=== PATIENT | male | born 1940 | race Caucasian/White ===

== ENCOUNTER 2018-08-27 16:02 | Inpatient (IN) | payer MEDICARE, BC ==
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
[2018-08-27 16:43] LABS: Hematocrit 37 % (42-52); Hemoglobin 12.3 g/dl (14.0-18.0); Mean Corpuscular HGB Conc 33 g/dl (31-36); Mean Corpuscular Hemoglobin 31 pg (27-31); Mean Corpuscular Volume 93 fL (80-94); Mean Platelet Volume 7.1 fL (7.4-10.4); Platelet Count 129 10^3/ul (150-450); Red Blood Count 3.95 10^6/ul (4.00-5.40); Red Cell Distribution Width 16 % (10.5-15); White Blood Count 5.1 10^3/ul (3.5-10.8)
[2018-08-27 17:42] LABS: Monocytes % 8 % (0-7)
[2018-08-27] MEDS ORDERED: NS 0.9% 1000 ML*IV.FLUID IV ONE (20:32)
[2018-08-27] MEDS ORDERED: cefTRIAXone(*) 1 GM in NS 0.9% 50 ML* 50 ML IVPB ONE (21:00)
[2018-08-27 21:08] LABS: ABS Basophils 0 10^3/ul (0-0.2); ABS Eosinophils 0 10^3/ul (0-0.6); ABS Lymphocytes 0.4 10^3/ul (1.0-4.8); ABS Monocytes 0.6 10^3/ul (0-0.8); ABS Neutrophils 4.3 10^3/ul (1.5-7.7); ABS Nucleated RBC 0 10^3/ul; Eosinophil % 0.1 % (0-6); Hematocrit 37 % (42-52); Hemoglobin 12.2 g/dl (14.0-18.0); Lymphocyte % 8.3 % (25-47); Mean Corpuscular HGB Conc 34 g/dl (31-36); Mean Corpuscular Hemoglobin 31 pg (27-31); Mean Corpuscular Volume 93 fL (80-94); Mean Platelet Volume 7.2 fL (7.4-10.4); Nucleated Red Blood Cells % 0.4; Platelet Count 128 10^3/ul (150-450); Red Blood Count 3.92 10^6/ul (4.00-5.40); Red Cell Distribution Width 16 % (10.5-15); White Blood Count 5.4 10^3/ul (3.5-10.8)
[2018-08-27] MEDS ORDERED: Acetaminophen TAB* 325 MG PO PRN (21:41)
[2018-08-27] MEDS ORDERED: Senna TAB PO PRN (21:41)
[2018-08-27] MEDS ORDERED: Al Hydrox/Mg Hydrox/Simet LIQ* 30 ML UDC PO PRN (21:41)
[2018-08-27] MEDS ORDERED: Docusate CAP* 100 MG PO PRN (21:41)
[2018-08-27] MEDS ORDERED: Ondansetron INJ* 2 MG/ML VIAL IV PRN (21:41)
[2018-08-27 22:20] LABS: Urine Appearance Clear; Urine Blood 1+ (Negative); Urine Color Yellow; Urine Ketones 1+ (Negative); Urine Protein Negative (Negative); Urine Urobilinogen Negative (Negative)
[2018-08-27] MEDS ORDERED: Magnesium Sulfate 2 GM IV* 2 GM/50 ML BAG IVPB ONE (23:01)
[2018-08-27] MEDS: Heparin VIAL(*) 5000 UNITS/ML VIAL (FIVE THOUSAND) SUBCUT SCH (23:46)
[2018-08-27] MEDS: NS 0.9% 1000 ML* 1,000 ML IV SCH (23:46)
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
[2018-08-28 05:33] LABS: Hematocrit 35 % (42-52); Mean Corpuscular HGB Conc 34 g/dl (31-36); Mean Corpuscular Hemoglobin 32 pg (27-31); Mean Corpuscular Volume 93 fL (80-94); Mean Platelet Volume 7.3 fL (7.4-10.4); Platelet Count 109 10^3/ul (150-450); Red Blood Count 3.78 10^6/ul (4.00-5.40); Red Cell Distribution Width 16 % (10.5-15); White Blood Count 5.1 10^3/ul (3.5-10.8)
[2018-08-28 05:56] LABS: EGFR Non-African American 76.3 (>60)
[2018-08-28] MEDS: Heparin VIAL(*) 5000 UNITS/ML VIAL (FIVE THOUSAND) SUBCUT SCH ×3 (06:08→20:37)
[2018-08-28 07:21] LABS: ABS Basophils 0 10^3/ul (0-0.2); ABS Eosinophils 0 10^3/ul (0-0.6); ABS Lymphocytes 0.5 10^3/ul (1.0-4.8); ABS Monocytes 0.6 10^3/ul (0-0.8); ABS Neutrophils 3.9 10^3/ul (1.5-7.7)
[2018-08-28 07:25] LABS: Monocytes % 9 % (0-7)
[2018-08-28] MEDS: NS 0.9% 1000 ML* 1,000 ML IV SCH ×2 (09:54→20:11)
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
[2018-08-28] MEDS: Aspirin EC TAB* 81 MG TAB.EC PO SCH (20:06)
[2018-08-28] MEDS: Tamsulosin CAP* 0.4 MG PO SCH (20:06)
[2018-08-28] MEDS: Primidone TAB(*) 50 MG PO SCH (20:38)
[2018-08-28] MEDS ORDERED: cefTRIAXone(*) 1 GM in NS 0.9% 50 ML* 50 ML IVPB SCH (21:00)
--- NOTE | 2018-08-29 00:30 | PN ---
Progress Note - Progress Note Date of Service: 08/29/18 Note: HR in 40's while sleeping, goes up when awakes. BP: NL. Not on any antihypertensives.
[2018-08-29] MEDS: Heparin VIAL(*) 5000 UNITS/ML VIAL (FIVE THOUSAND) SUBCUT SCH ×3 (05:17→21:36)
[2018-08-29 05:30] LABS: Hematocrit 32 % (42-52); Hemoglobin 10.8 g/dl (14.0-18.0); Mean Corpuscular HGB Conc 33 g/dl (31-36); Mean Corpuscular Hemoglobin 31 pg (27-31); Mean Corpuscular Volume 94 fL (80-94); Mean Platelet Volume 7.7 fL (7.4-10.4); Platelet Count 97 10^3/ul (150-450); Red Blood Count 3.44 10^6/ul (4.00-5.40); Red Cell Distribution Width 16 % (10.5-15); White Blood Count 3.3 10^3/ul (3.5-10.8)
[2018-08-29] MEDS: NS 0.9% 1000 ML* 1,000 ML IV SCH (05:32)
[2018-08-29 05:48] LABS: ABS Basophils 0 10^3/ul (0-0.2); ABS Eosinophils 0.1 10^3/ul (0-0.6); ABS Lymphocytes 0.7 10^3/ul (1.0-4.8); ABS Monocytes 0.7 10^3/ul (0-0.8); ABS Neutrophils 1.9 10^3/ul (1.5-7.7); ABS Nucleated RBC 0 10^3/ul
[2018-08-29 05:53] LABS: Monocytes % 15 % (0-7)
[2018-08-29 05:54] LABS: ABS Neutrophils 1.9 10^3/ul (1.5-7.7)
[2018-08-29 05:55] LABS: ABS Basophils 0 10^3/ul (0-0.2)
[2018-08-29] MEDS: DULoxetine DR CAP* 60 MG CAP.DR PO SCH (08:04)
[2018-08-29] MEDS: Aspirin EC TAB* 81 MG TAB.EC PO SCH (08:05)
[2018-08-29] MEDS ORDERED: Iohexol 300* (CONTRAST) 10 ML SDV IV ONE (13:14)
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
[2018-08-29] MEDS: Thiamine IV* 250 MG in NS 0.9% 100 ML* 100 ML IV SCH (17:31)
[2018-08-29] MEDS: Atorvastatin* 20 MG TAB PO SCH (17:31)
[2018-08-29] MEDS: Tamsulosin CAP* 0.4 MG PO SCH (21:36)
[2018-08-29] MEDS: Primidone TAB(*) 50 MG PO SCH (21:36)
[2018-08-30] MEDS: Thiamine IV* 250 MG in NS 0.9% 100 ML* 100 ML IV SCH ×4 (01:10→23:35)
[2018-08-30] MEDS: Heparin VIAL(*) 5000 UNITS/ML VIAL (FIVE THOUSAND) SUBCUT SCH ×3 (05:34→20:28)
[2018-08-30] MEDS: Aspirin EC TAB* 81 MG TAB.EC PO SCH (08:26)
[2018-08-30] MEDS: DULoxetine DR CAP* 60 MG CAP.DR PO SCH (08:26)
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
[2018-08-30] MEDS: Atorvastatin* 20 MG TAB PO SCH (17:46)
[2018-08-30] MEDS: Tamsulosin CAP* 0.4 MG PO SCH (20:28)
[2018-08-30] MEDS: Primidone TAB(*) 50 MG PO SCH (20:28)
--- NOTE | 2018-08-30 21:12 | PN ---
Hospitalist Progress Note Date of Service: 08/30/18 HOSPITALIST ADDENDUM I found patient wandering on the hallway and he didn't know how to return to his room. He recognized med, but didn't remember much of our conversation this morning. He was aware he was having memory issues and could not tell me how he had gotten to the 2nd floor. Observing the patient at this time, I believe he may not be safe to be by himself at home. As he does not have any family, we need to figure a safer discharge plan.
[2018-08-31] MEDS: Heparin VIAL(*) 5000 UNITS/ML VIAL (FIVE THOUSAND) SUBCUT SCH ×3 (05:25→21:45)
[2018-08-31] MEDS: DULoxetine DR CAP* 60 MG CAP.DR PO SCH (08:41)
[2018-08-31] MEDS: Aspirin EC TAB* 81 MG TAB.EC PO SCH (08:41)
[2018-08-31] MEDS: Thiamine IV* 250 MG in NS 0.9% 100 ML* 100 ML IV SCH (08:41)
[2018-08-31] MEDS: Atorvastatin* 20 MG TAB PO SCH (16:07)
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
[2018-08-31] MEDS: Primidone TAB(*) 50 MG PO SCH (21:45)
[2018-08-31] MEDS: Tamsulosin CAP* 0.4 MG PO SCH (21:45)
[2018-09-01] MEDS: Heparin VIAL(*) 5000 UNITS/ML VIAL (FIVE THOUSAND) SUBCUT SCH ×3 (04:38→21:15)
[2018-09-01] MEDS: DULoxetine DR CAP* 60 MG CAP.DR PO SCH (10:06)
[2018-09-01] MEDS: Aspirin EC TAB* 81 MG TAB.EC PO SCH (10:06)
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
[2018-09-01] MEDS: Thiamine TAB* 100 MG TAB PO SCH (12:27)
[2018-09-01] MEDS: Atorvastatin* 20 MG TAB PO SCH (18:19)
[2018-09-01] MEDS: Primidone TAB(*) 50 MG PO SCH (21:06)
[2018-09-01] MEDS: Tamsulosin CAP* 0.4 MG PO SCH (21:06)
[2018-09-02] MEDS: Heparin VIAL(*) 5000 UNITS/ML VIAL (FIVE THOUSAND) SUBCUT SCH ×3 (05:23→21:06)
[2018-09-02 05:49] LABS: ABS Basophils 0 10^3/ul (0-0.2); ABS Eosinophils 0.1 10^3/ul (0-0.6); ABS Lymphocytes 1.3 10^3/ul (1.0-4.8); ABS Monocytes 0.4 10^3/ul (0-0.8); ABS Neutrophils 2.8 10^3/ul (1.5-7.7); ABS Nucleated RBC 0 10^3/ul; Eosinophil % 2.1 % (0-6); Hematocrit 33 % (42-52); Hemoglobin 11.1 g/dl (14.0-18.0); Lymphocyte % 27.4 % (25-47); Mean Corpuscular HGB Conc 34 g/dl (31-36); Mean Corpuscular Hemoglobin 31 pg (27-31); Mean Corpuscular Volume 93 fL (80-94); Nucleated Red Blood Cells % 0.1; Platelet Count 185 10^3/ul (150-450); Red Blood Count 3.54 10^6/ul (4.00-5.40); Red Cell Distribution Width 16 % (10.5-15); White Blood Count 4.6 10^3/ul (3.5-10.8)
[2018-09-02] MEDS: Thiamine TAB* 100 MG TAB PO SCH (08:52)
[2018-09-02] MEDS: Folic Acid TAB* 1 MG PO SCH (08:52)
[2018-09-02] MEDS: Multivitamins/Minerals TAB PO SCH (08:52)
[2018-09-02] MEDS: Aspirin EC TAB* 81 MG TAB.EC PO SCH (08:52)
[2018-09-02] MEDS: DULoxetine DR CAP* 60 MG CAP.DR PO SCH (08:52)
[2018-09-02] MEDS: Atorvastatin* 20 MG TAB PO SCH (18:56)
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
[2018-09-02] MEDS: Tamsulosin CAP* 0.4 MG PO SCH (21:08)
[2018-09-02] MEDS: Primidone TAB(*) 50 MG PO SCH (21:08)
[2018-09-03 00:25] VITALS: BP 134/60
[2018-09-03] MEDS: Heparin VIAL(*) 5000 UNITS/ML VIAL (FIVE THOUSAND) SUBCUT SCH (05:41)
[2018-09-03 06:05] LABS: EGFR Non-African American 97.2 (>60)
[2018-09-03] MEDS: DULoxetine DR CAP* 60 MG CAP.DR PO SCH (09:37)
[2018-09-03] MEDS: Aspirin EC TAB* 81 MG TAB.EC PO SCH (09:37)
[2018-09-03] MEDS: Multivitamins/Minerals TAB PO SCH (09:37)
[2018-09-03] MEDS: Thiamine TAB* 100 MG TAB PO SCH (09:37)
[2018-09-03] MEDS: Folic Acid TAB* 1 MG PO SCH (09:37)
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
== END 2018-09-03 13:45 | DRG 93 ==
LOC: ED 16:02 → MEDTELE 21:41 → OBSVTOIN 08-29 10:15 → MEDTELE 08-30 20:53
PROVIDERS: ADMIT Pediatrics; ATTEND Internal Medicine
DX: G92 Toxic encephalopathy (principal); F32.9 Major depressive disorder, single episode, unspecified; R50.9 Fever, unspecified; I47.9 Paroxysmal tachycardia, unspecified; M19.90 Unspecified osteoarthritis, unspecified site; G25.0 Essential tremor; D50.9 Iron deficiency anemia, unspecified; I08.1 Rheumatic disorders of both mitral and tricuspid valves; I25.10 Atherosclerotic heart disease of native coronary artery without angina pectoris; R79.89 Other specified abnormal findings of blood chemistry; E87.8 Other disorders of electrolyte and fluid balance, not elsewhere classified; E53.8 Deficiency of other specified B group vitamins; N40.0 Benign prostatic hyperplasia without lower urinary tract symptoms; V43.52XA Car driver injured in collision with other type car in traffic accident, initial encounter; Z79.82 Long term (current) use of aspirin; Z85.038 Personal history of other malignant neoplasm of large intestine; Z93.3 Colostomy status; Z87.891 Personal history of nicotine dependence; Z72.89 Other problems related to lifestyle; Z86.73 Personal history of transient ischemic attack (TIA), and cerebral infarction without residual deficits; Y92.410 Unspecified street and highway as the place of occurrence of the external cause
CPT/HCPCS: 36415; 70450; 70551; 71046; 71260; 74177; 80048; 80053; 80061; 80320; 81003; 81015; 82140; 82607; 83605; 83735; 84439; 84443; 85025; 85060; 86617; 86618; 87040; 93005; 99283; A9270-GY; G0480; G8978-GP-CH; G8978-GP-CJ; G8979-GP-CH; G8980-GP-CH; G8987-GO-CI; G8988-GO-CI; G8989-GO-CI; J0696; J1644; J3411; J3475; Q9967

== ENCOUNTER 2021-08-31 21:46 | Inpatient (IN) ==
[2021-08-31 22:21] LABS: ABS Lymphocytes 0.5 10^3/ul (1.0-4.8); ABS Monocytes 1.5 10^3/ul (0-0.8); ABS Neutrophils 16.2 10^3/ul (1.5-7.7); Hematocrit 36 % (42-52); Hemoglobin 12.2 g/dL (14.0-18.0); Lymphocyte % 2.6 %; Mean Corpuscular HGB Conc 34 g/dL (31-36); Mean Corpuscular Hemoglobin 34 pg (27-31); Mean Corpuscular Volume 101 fL (80-94); Platelet Count 276 10^3/uL (150-450); Red Blood Count 3.54 10^6 /uL (4.18-5.48); Red Cell Distribution Width 13 % (10-15); White Blood Count 18.2 10^3/uL (3.5-10.8)
[2021-08-31 22:37] LABS: Albumin 3.9 g/dL (3.2-5.2); Albumin/Globulin Ratio 1.3 (1-3); Calcium 9.5 mg/dL (8.6-10.3); Globulin 3.1 g/dL (2-4); Potassium 4.4 mmol/L (3.5-5.0); Total Bilirubin 0.9 mg/dL (0.2-1.0)
[2021-08-31] MEDS ORDERED: Morphine 4 MG/ML VIAL (1 ml) IV ONE (22:39)
[2021-08-31] MEDS ORDERED: Lactated Ringers 1000 ml BAG 1,000 ML IV ONE (22:39)
[2021-09-01] MEDS ORDERED: Ondansetron 4 mg VIAL 2 MG/ML 2 ml VIAL IV PRN (01:11)
[2021-09-01] MEDS ORDERED: NS 0.9% 1000 ml BAG 1,000 ML IV SCH (01:15)
[2021-09-01 03:51] LABS: Rapid COVID-19 Molecular Undetected (Undetected)
[2021-09-01 09:05] LABS: ABS Lymphocytes 0.7 10^3/ul (1.0-4.8); ABS Monocytes 1.4 10^3/ul (0-0.8); ABS Neutrophils 12.4 10^3/ul (1.5-7.7); Hematocrit 31 % (42-52); Hemoglobin 10.8 g/dL (14.0-18.0); Lymphocyte % 5.1 %; Mean Corpuscular HGB Conc 35 g/dL (31-36); Mean Corpuscular Hemoglobin 36 pg (27-31); Mean Corpuscular Volume 102 fL (80-94); Mean Platelet Volume 7.1 fL (7.4-10.4); Platelet Count 222 10^3/uL (150-450); Red Blood Count 3.05 10^6 /uL (4.18-5.48); Red Cell Distribution Width 13 % (10-15); White Blood Count 14.5 10^3/uL (3.5-10.8)
[2021-09-01 09:14] LABS: ALT 25 U/L (7-52); AST 95 U/L (13-39); Albumin 3.4 g/dL (3.2-5.2); Albumin/Globulin Ratio 1.1 (1-3); Alkaline Phosphatase 46 U/L (35-149); Anion Gap 5 mmol/L (2-11); Blood Urea Nitrogen 30 mg/dL (6-24); CO2 Carbon Dioxide 30 mmol/L (22-32); Calcium 9.1 mg/dL (8.6-10.3); Chloride 100 mmol/L (101-111); Glucose 108 mg/dL (70-100); Potassium 4.4 mmol/L (3.5-5.0); Sodium 135 mmol/L (135-145); Total Protein 6.4 g/dL (6.4-8.9)
[2021-09-01 09:20] LABS: CKMB ng/mL 63.8 ng/mL (0.6-6.3)
[2021-09-01 09:21] LABS: Troponin I 0.04 ng/mL (<0.03)
[2021-09-01 09:34] LABS: Creatine Kinase 2834 U/L (10-223)
[2021-09-01] MEDS: Vitamin THERAPEUTIC TAB PO SCH (09:36)
[2021-09-01 12:02] LABS: Activated Partial Thrombo Time 29.8 seconds (26.0-38.0); INR 1.04 (0.86-1.15)
[2021-09-01 12:11] LABS: Troponin I 0.04 ng/mL (<0.03)
[2021-09-01] MEDS ORDERED: Perflutren Lipid Microsphere 3 ML VIAL ONE (14:59)
[2021-09-01] MEDS ORDERED: Lactated Ringers 500 ml BAG 500 ML IV ONE (17:23)
[2021-09-01 18:40] LABS: Urine Appearance Cloudy; Urine Bilirubin Negative (Negative); Urine Blood 3+ (Negative); Urine Color Yellow; Urine Glucose Negative (Negative); Urine Ketones Negative (Negative); Urine Nitrite Negative (Negative); Urine Protein Negative (Negative); Urine Specific Gravity 1.019 (1.002-1.030); Urine Urobilinogen Negative (Negative)
[2021-09-01] MEDS ORDERED: Lactated Ringers 1000 ml BAG 1,000 ML IV ONE (18:48)
[2021-09-01 18:50] LABS: Urine Amorphous Crystals Present (Absent); Urine Bacteria Absent (Absent); Urine Red Blood Cell 3+(>10/hpf) (Absent); Urine Squamous Epithelial Cell Present (Absent); Urine White Blood Cell Trace(0-5/hpf) (Absent)
[2021-09-01 19:08] LABS: % Iron Saturation 9 % (15-55); Iron 23 ug/dL (50-212); Total Iron Binding Capacity 260 mcg/dL (250-450); Transferrin 186 mg/dL (203-362); Unsaturated Iron Binding < 245 ug/dL
[2021-09-01 19:33] LABS: Folate 9.68 ng/mL (5.90-24.80)
[2021-09-01 19:34] LABS: Vitamin B12 556 pg/mL (180-914)
[2021-09-01] MEDS: DULoxetine DR 60 mg CAP PO SCH (22:25)
[2021-09-02] MEDS ORDERED: Heparin 5000 UNITS/ML 1 mL VIAL SUBCUT ONE (00:01)
[2021-09-02 06:24] LABS: Hematocrit 29 % (42-52); Hemoglobin 9.9 g/dL (14.0-18.0); Mean Corpuscular HGB Conc 35 g/dL (31-36); Mean Corpuscular Hemoglobin 35 pg (27-31); Mean Corpuscular Volume 102 fL (80-94); Mean Platelet Volume 7.5 fL (7.4-10.4); Platelet Count 206 10^3/uL (150-450); Red Blood Count 2.81 10^6 /uL (4.18-5.48); Red Cell Distribution Width 13 % (10-15); White Blood Count 11.8 10^3/uL (3.5-10.8)
[2021-09-02 06:42] LABS: Calcium 8.8 mg/dL (8.6-10.3); Magnesium 1.9 mg/dL (1.9-2.7); Potassium 4.1 mmol/L (3.5-5.0)
[2021-09-02 06:44] LABS: INR 1.03 (0.86-1.15)
[2021-09-02] MEDS: Vitamin THERAPEUTIC TAB PO SCH (09:13)
[2021-09-02] MEDS: DULoxetine DR 60 mg CAP PO SCH (09:13)
[2021-09-02] MEDS: Lactated Ringers 1000 ml BAG 1,000 ML IV SCH (11:58)
[2021-09-02] MEDS ORDERED: Bupivacaine 0.5% 50 ML MDV VIAL ONE ×2 (13:52→18:11)
[2021-09-02] MEDS ORDERED: ceFAZolin 2 GM in NS PREMIX 2 GM/100 ML BAG IVPB ONE (18:35)
[2021-09-02] MEDS ORDERED: Propofol 10 MG/ML 20 ML BTL ONE (18:42)
[2021-09-02] MEDS ORDERED: fentaNYL 250 mcg/5 ml 50 MCG/ML 5 ml VIAL (250 MCG) ONE (18:43)
[2021-09-02] MEDS ORDERED: Rocuronium 50 mg VIAL 10 mg/ml 5 ml VIAL (50 mg) ONE (18:46)
[2021-09-02] MEDS ORDERED: Lidocaine 2% PF 5 ML VIAL ONE (18:49)
[2021-09-02] MEDS ORDERED: EPHEDrine (Pressors) 50 MG/ML VIAL ONE (19:19)
[2021-09-02] MEDS ORDERED: Ondansetron 4 mg VIAL 2 MG/ML 2 ml VIAL IV PRN (20:35)
[2021-09-02] MEDS ORDERED: fentaNYL 100 mcg/2 ml 50 MCG/ML VIAL IV PRN (20:35)
[2021-09-02] MEDS ORDERED: Acetaminophen IV 1 GM/100ML 100 ML IV ONE ×2 (20:35→21:13)
[2021-09-02] MEDS ORDERED: Naloxone 0.4 mg VIAL 0.4 mg/ml 1 ml VIAL IV PRN (20:35)
[2021-09-02 23:53] LABS: Hematocrit 23 % (42-52); Hemoglobin 8.1 g/dL (14.0-18.0); Mean Corpuscular HGB Conc 35 g/dL (31-36); Mean Corpuscular Hemoglobin 36 pg (27-31); Mean Corpuscular Volume 103 fL (80-94); Mean Platelet Volume 7.1 fL (7.4-10.4); Platelet Count 181 10^3/uL (150-450); Red Blood Count 2.28 10^6 /uL (4.18-5.48); Red Cell Distribution Width 13 % (10-15); White Blood Count 10.2 10^3/uL (3.5-10.8)
[2021-09-03] MEDS: Lactated Ringers 1000 ml BAG 1,000 ML IV SCH ×2 (00:56→07:19)
[2021-09-03] MEDS: ceFAZolin 1 GM X 3 DOSES POST-OP Q8H (AddVan) IVPB SCH ×3 (03:34→19:12)
[2021-09-03 05:12] LABS: Hematocrit 22 % (42-52); Hemoglobin 7.5 g/dL (14.0-18.0); Mean Corpuscular HGB Conc 35 g/dL (31-36); Mean Corpuscular Hemoglobin 36 pg (27-31); Mean Corpuscular Volume 102 fL (80-94); Mean Platelet Volume 7.3 fL (7.4-10.4); Platelet Count 172 10^3/uL (150-450); Red Blood Count 2.11 10^6 /uL (4.18-5.48); Red Cell Distribution Width 13 % (10-15); White Blood Count 9.6 10^3/uL (3.5-10.8)
[2021-09-03 05:41] LABS: Calcium 8.2 mg/dL (8.6-10.3); Magnesium 1.9 mg/dL (1.9-2.7)
[2021-09-03] MEDS: Enoxaparin 40 MG/0.4 ML SYR SUBCUT SCH (09:20)
[2021-09-03] MEDS: DULoxetine DR 60 mg CAP PO SCH (09:21)
[2021-09-03] MEDS: Vitamin THERAPEUTIC TAB PO SCH (09:22)
[2021-09-03 22:40] LABS: Hematocrit 25 % (42-52); Hemoglobin 8.7 g/dL (14.0-18.0); Mean Corpuscular HGB Conc 35 g/dL (31-36); Mean Corpuscular Hemoglobin 34 pg (27-31); Mean Corpuscular Volume 98 fL (80-94); Mean Platelet Volume 7.1 fL (7.4-10.4); Platelet Count 189 10^3/uL (150-450); Red Blood Count 2.55 10^6 /uL (4.18-5.48); Red Cell Distribution Width 16 % (10-15); White Blood Count 10.4 10^3/uL (3.5-10.8)
[2021-09-04 06:20] LABS: ABS Lymphocytes 0.5 10^3/ul (1.0-4.8); ABS Neutrophils 8.6 10^3/ul (1.5-7.7); Hematocrit 25 % (42-52); Hemoglobin 8.6 g/dL (14.0-18.0); Lymphocyte % 4.9 %; Mean Corpuscular HGB Conc 35 g/dL (31-36); Mean Corpuscular Hemoglobin 34 pg (27-31); Mean Corpuscular Volume 98 fL (80-94); Mean Platelet Volume 7.3 fL (7.4-10.4); Platelet Count 209 10^3/uL (150-450); Red Blood Count 2.51 10^6 /uL (4.18-5.48); Red Cell Distribution Width 16 % (10-15); White Blood Count 10.1 10^3/uL (3.5-10.8)
[2021-09-04 06:35] LABS: Calcium 8.5 mg/dL (8.6-10.3)
[2021-09-04] MEDS: Enoxaparin 40 MG/0.4 ML SYR SUBCUT SCH (08:18)
[2021-09-04] MEDS: DULoxetine DR 60 mg CAP PO SCH (08:20)
[2021-09-04] MEDS: Vitamin THERAPEUTIC TAB PO SCH (08:21)
[2021-09-04] MEDS: Nitrofurantoin (monohydrate/macrocrystals) 100 mg CAP PO SCH ×2 (11:30→20:14)
[2021-09-05 05:47] LABS: Hematocrit 23 % (42-52); Hemoglobin 7.8 g/dL (14.0-18.0); Mean Corpuscular HGB Conc 34 g/dL (31-36); Mean Corpuscular Hemoglobin 34 pg (27-31); Mean Corpuscular Volume 100 fL (80-94); Mean Platelet Volume 7.2 fL (7.4-10.4); Platelet Count 197 10^3/uL (150-450); Red Blood Count 2.31 10^6 /uL (4.18-5.48); Red Cell Distribution Width 15 % (10-15); White Blood Count 7.5 10^3/uL (3.5-10.8)
[2021-09-05 05:57] LABS: Calcium 8.3 mg/dL (8.6-10.3); Magnesium 1.9 mg/dL (1.9-2.7); Potassium 3.6 mmol/L (3.5-5.0)
[2021-09-05] MEDS ORDERED: Potassium Chlor 20 meq TAB.ER PO ONE (07:30)
[2021-09-05] MEDS ORDERED: Magnesium Sulfate IV 1GM/100ML 1 GM/100 ML BAG IV ONE (07:30)
[2021-09-05] MEDS: Enoxaparin 40 MG/0.4 ML SYR SUBCUT SCH (08:20)
[2021-09-05] MEDS: DULoxetine DR 60 mg CAP PO SCH (08:20)
[2021-09-05] MEDS: Vitamin THERAPEUTIC TAB PO SCH (08:21)
[2021-09-05] MEDS: Nitrofurantoin (monohydrate/macrocrystals) 100 mg CAP PO SCH ×2 (08:23→21:21)
[2021-09-05 14:16] LABS: Hematocrit 25 % (42-52); Hemoglobin 8.7 g/dL (14.0-18.0)
[2021-09-06 05:15] LABS: Hematocrit 26 % (42-52); Hemoglobin 8.8 g/dL (14.0-18.0); Mean Corpuscular HGB Conc 35 g/dL (31-36); Mean Corpuscular Hemoglobin 34 pg (27-31); Mean Corpuscular Volume 99 fL (80-94); Mean Platelet Volume 7.2 fL (7.4-10.4); Platelet Count 212 10^3/uL (150-450); Red Blood Count 2.57 10^6 /uL (4.18-5.48); Red Cell Distribution Width 15 % (10-15); White Blood Count 7.2 10^3/uL (3.5-10.8)
[2021-09-06 05:40] LABS: Calcium 8.4 mg/dL (8.6-10.3); Magnesium 1.9 mg/dL (1.9-2.7); Potassium 3.8 mmol/L (3.5-5.0)
[2021-09-06] MEDS ORDERED: Potassium Chlor 20 meq TAB.ER PO ONE (06:25)
[2021-09-06] MEDS ORDERED: Magnesium Sulfate IV 1GM/100ML 1 GM/100 ML BAG IV ONE (06:25)
[2021-09-06] MEDS: DULoxetine DR 60 mg CAP PO SCH (09:19)
[2021-09-06] MEDS: Nitrofurantoin (monohydrate/macrocrystals) 100 mg CAP PO SCH ×2 (09:19→23:00)
[2021-09-06] MEDS: Enoxaparin 40 MG/0.4 ML SYR SUBCUT SCH (09:20)
[2021-09-06] MEDS: Vitamin THERAPEUTIC TAB PO SCH (09:20)
[2021-09-06] MEDS: Aspirin EC 81 mg TAB.EC (enteric coated) PO SCH (14:17)
[2021-09-06 22:27] LABS: Rapid COVID-19 Molecular Undetected (Undetected)
[2021-09-07] MEDS ORDERED: Polyethylene Glycol 3350 17 GM PACKET PO PRN (02:52)
[2021-09-07 07:42] LABS: Hematocrit 32 % (42-52)
[2021-09-07] MEDS: DULoxetine DR 60 mg CAP PO SCH (11:33)
[2021-09-07] MEDS: Aspirin EC 81 mg TAB.EC (enteric coated) PO SCH (11:33)
[2021-09-07] MEDS: Vitamin THERAPEUTIC TAB PO SCH (11:34)
[2021-09-07] MEDS: Nitrofurantoin (monohydrate/macrocrystals) 100 mg CAP PO SCH ×2 (11:34→20:59)
[2021-09-07] MEDS: Enoxaparin 40 MG/0.4 ML SYR SUBCUT SCH (11:49)
[2021-09-07] MEDS: Polyethylene Glycol 3350 17 GM PACKET PO SCH (15:59)
[2021-09-08 06:47] LABS: Hematocrit 25 % (42-52); Hemoglobin 8.3 g/dL (14.0-18.0); Mean Corpuscular HGB Conc 33 g/dL (31-36); Mean Corpuscular Hemoglobin 33 pg (27-31); Mean Corpuscular Volume 100 fL (80-94); Mean Platelet Volume 7.8 fL (7.4-10.4); Platelet Count 321 10^3/uL (150-450); Red Blood Count 2.51 10^6 /uL (4.18-5.48); Red Cell Distribution Width 15 % (10-15); White Blood Count 11.3 10^3/uL (3.5-10.8)
[2021-09-08 07:10] LABS: Calcium 8.4 mg/dL (8.6-10.3); Magnesium 1.9 mg/dL (1.9-2.7); Potassium 3.9 mmol/L (3.5-5.0)
[2021-09-08] MEDS: Polyethylene Glycol 3350 17 GM PACKET PO SCH (09:41)
[2021-09-08] MEDS: Aspirin EC 81 mg TAB.EC (enteric coated) PO SCH (09:41)
[2021-09-08] MEDS: DULoxetine DR 60 mg CAP PO SCH (09:41)
[2021-09-08] MEDS: Nitrofurantoin (monohydrate/macrocrystals) 100 mg CAP PO SCH ×2 (09:41→20:44)
[2021-09-08] MEDS: Vitamin THERAPEUTIC TAB PO SCH (09:42)
[2021-09-08] MEDS: Enoxaparin 40 MG/0.4 ML SYR SUBCUT SCH (10:22)
[2021-09-09 09:38] LABS: Hematocrit 28 % (42-52); Hemoglobin 9.3 g/dL (14.0-18.0); Mean Corpuscular HGB Conc 33 g/dL (31-36); Mean Corpuscular Hemoglobin 33 pg (27-31); Mean Corpuscular Volume 100 fL (80-94); Mean Platelet Volume 7.3 fL (7.4-10.4); Platelet Count 385 10^3/uL (150-450); Red Blood Count 2.85 10^6 /uL (4.18-5.48); Red Cell Distribution Width 15 % (10-15); White Blood Count 16.5 10^3/uL (3.5-10.8)
[2021-09-09] MEDS ORDERED: cefTRIAXone 1 gm/50 mL NS BAG 1 GM/50 ML BAG IVPB SCH (09:39)
[2021-09-09] MEDS ORDERED: Lactated Ringers 500 ml BAG 500 ML IV ONE (09:45)
[2021-09-09 09:52] LABS: Calcium 8.4 mg/dL (8.6-10.3); Magnesium 1.9 mg/dL (1.9-2.7); Potassium 3.5 mmol/L (3.5-5.0); eGFR CKD-EPI 93.1 (>60)
[2021-09-09] MEDS: Vitamin THERAPEUTIC TAB PO SCH (10:13)
[2021-09-09] MEDS: Aspirin EC 81 mg TAB.EC (enteric coated) PO SCH (10:14)
[2021-09-09] MEDS: Polyethylene Glycol 3350 17 GM PACKET PO SCH (10:14)
[2021-09-09] MEDS: DULoxetine DR 60 mg CAP PO SCH (10:15)
[2021-09-09] MEDS: Enoxaparin 40 MG/0.4 ML SYR SUBCUT SCH (10:19)
[2021-09-09] MEDS ORDERED: Vancomycin 1000 MG in NS 0.9% 250 ML IVPB ONE (11:00)
[2021-09-09] MEDS ORDERED: Vancomycin per Pharmacy 1 EA NOTE FOLLOW UP SCH (11:00)
[2021-09-09] MEDS: Cefepime 2 GM in Dextrose 2 GM/50 ML BAG IV SCH (17:55)
[2021-09-10] MEDS: Vancomycin 1000 MG in NS 0.9% 250 ML IVPB SCH ×3 (00:36→23:56)
[2021-09-10] MEDS: Cefepime 2 GM in Dextrose 2 GM/50 ML BAG IV SCH ×3 (02:39→17:09)
[2021-09-10] MEDS: Aspirin EC 81 mg TAB.EC (enteric coated) PO SCH (08:32)
[2021-09-10] MEDS: Polyethylene Glycol 3350 17 GM PACKET PO SCH (08:33)
[2021-09-10] MEDS: DULoxetine DR 60 mg CAP PO SCH (08:34)
[2021-09-10] MEDS: Vitamin THERAPEUTIC TAB PO SCH (08:35)
[2021-09-10] MEDS: Enoxaparin 40 MG/0.4 ML SYR SUBCUT SCH (08:44)
[2021-09-10 10:07] LABS: ABS Basophils 0.1 10^3/ul (0-0.2); ABS Eosinophils 0.1 10^3/ul (0-0.6); ABS Lymphocytes 0.7 10^3/ul (1.0-4.8); ABS Monocytes 0.8 10^3/ul (0-0.8); ABS Neutrophils 11.6 10^3/ul (1.5-7.7); Eosinophil % 0.7 %; Hematocrit 25 % (42-52); Hemoglobin 8.4 g/dL (14.0-18.0); Mean Corpuscular HGB Conc 33 g/dL (31-36); Mean Corpuscular Hemoglobin 33 pg (27-31); Mean Corpuscular Volume 99 fL (80-94); Mean Platelet Volume 7.4 fL (7.4-10.4); Platelet Count 376 10^3/uL (150-450); Red Blood Count 2.57 10^6 /uL (4.18-5.48); Red Cell Distribution Width 15 % (10-15); White Blood Count 13.2 10^3/uL (3.5-10.8)
[2021-09-10 10:13] LABS: Calcium 7.8 mg/dL (8.6-10.3); Magnesium 1.7 mg/dL (1.9-2.7); Potassium 3.1 mmol/L (3.5-5.0); eGFR CKD-EPI 96.3 (>60)
[2021-09-10] MEDS ORDERED: Magnesium Sulfate IV 3 GM in NS 0.9% 100 ml BAG 100 ML IVPB ONE (14:00)
[2021-09-10] MEDS: Potassium Chlor 20 meq TAB.ER PO SCH ×2 (14:27→19:54)
[2021-09-11] MEDS: Cefepime 2 GM in Dextrose 2 GM/50 ML BAG IV SCH ×3 (01:49→17:26)
[2021-09-11 09:39] LABS: Hematocrit 25 % (42-52); Hemoglobin 8.4 g/dL (14.0-18.0); Mean Corpuscular HGB Conc 34 g/dL (31-36); Mean Corpuscular Hemoglobin 34 pg (27-31); Mean Corpuscular Volume 99 fL (80-94); Mean Platelet Volume 7.5 fL (7.4-10.4); Platelet Count 380 10^3/uL (150-450); Red Blood Count 2.52 10^6 /uL (4.18-5.48); Red Cell Distribution Width 15 % (10-15)
[2021-09-11] MEDS: Polyethylene Glycol 3350 17 GM PACKET PO SCH (09:46)
[2021-09-11] MEDS: DULoxetine DR 60 mg CAP PO SCH (09:48)
[2021-09-11] MEDS: Vitamin THERAPEUTIC TAB PO SCH (09:48)
[2021-09-11] MEDS: Aspirin EC 81 mg TAB.EC (enteric coated) PO SCH (09:48)
[2021-09-11] MEDS: Enoxaparin 40 MG/0.4 ML SYR SUBCUT SCH (09:50)
[2021-09-11 09:54] LABS: Calcium 7.7 mg/dL (8.6-10.3); Potassium 3.8 mmol/L (3.5-5.0); eGFR CKD-EPI 98.9 (>60)
[2021-09-11] MEDS ORDERED: Vancomycin Trough Check NOTE FOLLOW UP ONE (11:30)
[2021-09-11 11:39] LABS: eGFR CKD-EPI 95.3 (>60)
[2021-09-11 12:18] LABS: Vancomycin Trough 7.9 mcg/mL
[2021-09-11] MEDS: Vancomycin 1000 MG in NS 0.9% 250 ML IVPB SCH ×2 (12:40→23:33)
[2021-09-11 18:42] LABS: Rapid COVID-19 Molecular Undetected (Undetected)
[2021-09-12] MEDS: Cefepime 2 GM in Dextrose 2 GM/50 ML BAG IV SCH ×3 (01:35→16:32)
[2021-09-12] MEDS: Aspirin EC 81 mg TAB.EC (enteric coated) PO SCH (10:16)
[2021-09-12] MEDS: Vitamin THERAPEUTIC TAB PO SCH (10:16)
[2021-09-12] MEDS: Enoxaparin 40 MG/0.4 ML SYR SUBCUT SCH (10:17)
[2021-09-12] MEDS: DULoxetine DR 60 mg CAP PO SCH (10:17)
[2021-09-12] MEDS: Polyethylene Glycol 3350 17 GM PACKET PO SCH (10:17)
[2021-09-12] MEDS: Vancomycin 1000 MG in NS 0.9% 250 ML IVPB SCH (12:48)
[2021-09-13] MEDS: Vancomycin 1000 MG in NS 0.9% 250 ML IVPB SCH ×2 (00:44→12:18)
[2021-09-13] MEDS: Cefepime 2 GM in Dextrose 2 GM/50 ML BAG IV SCH ×3 (01:49→21:54)
[2021-09-13 07:27] LABS: Hematocrit 24 % (42-52); Hemoglobin 8.1 g/dL (14.0-18.0); Mean Corpuscular HGB Conc 34 g/dL (31-36); Mean Corpuscular Hemoglobin 34 pg (27-31); Mean Corpuscular Volume 100 fL (80-94); Mean Platelet Volume 7.4 fL (7.4-10.4); Platelet Count 402 10^3/uL (150-450); Red Blood Count 2.38 10^6 /uL (4.18-5.48); Red Cell Distribution Width 15 % (10-15); White Blood Count 8.4 10^3/uL (3.5-10.8)
[2021-09-13 07:38] LABS: Calcium 7.9 mg/dL (8.6-10.3); Potassium 3.8 mmol/L (3.5-5.0); eGFR CKD-EPI 94.4 (>60)
[2021-09-13] MEDS: Polyethylene Glycol 3350 17 GM PACKET PO SCH (10:14)
[2021-09-13] MEDS: Vitamin THERAPEUTIC TAB PO SCH (10:14)
[2021-09-13] MEDS: Aspirin EC 81 mg TAB.EC (enteric coated) PO SCH (10:16)
[2021-09-13] MEDS: DULoxetine DR 60 mg CAP PO SCH (10:16)
[2021-09-13] MEDS: Enoxaparin 40 MG/0.4 ML SYR SUBCUT SCH (10:17)
[2021-09-13] MEDS ORDERED: Vancomycin Trough Check NOTE FOLLOW UP ONE (11:30)
[2021-09-14] MEDS: Polyethylene Glycol 3350 17 GM PACKET PO SCH (09:39)
[2021-09-14] MEDS: Vitamin THERAPEUTIC TAB PO SCH (09:42)
[2021-09-14] MEDS: Aspirin EC 81 mg TAB.EC (enteric coated) PO SCH (09:42)
[2021-09-14] MEDS: DULoxetine DR 60 mg CAP PO SCH (09:42)
[2021-09-14] MEDS: Enoxaparin 40 MG/0.4 ML SYR SUBCUT SCH (09:43)
[2021-09-14] MEDS: Cefepime 2 GM in Dextrose 2 GM/50 ML BAG IV SCH ×2 (09:52→21:08)
[2021-09-14 13:07] LABS: Hematocrit 26 % (42-52); Hemoglobin 8.9 g/dL (14.0-18.0); Mean Corpuscular HGB Conc 34 g/dL (31-36); Mean Corpuscular Hemoglobin 34 pg (27-31); Mean Corpuscular Volume 100 fL (80-94); Platelet Count 536 10^3/uL (150-450); Red Blood Count 2.63 10^6 /uL (4.18-5.48); Red Cell Distribution Width 15 % (10-15)
[2021-09-15] MEDS: Cefepime 2 GM in Dextrose 2 GM/50 ML BAG IV SCH (09:35)
[2021-09-15] MEDS: Polyethylene Glycol 3350 17 GM PACKET PO SCH (09:39)
[2021-09-15] MEDS: Enoxaparin 40 MG/0.4 ML SYR SUBCUT SCH (09:39)
[2021-09-15] MEDS: Aspirin EC 81 mg TAB.EC (enteric coated) PO SCH (09:40)
[2021-09-15] MEDS: Vitamin THERAPEUTIC TAB PO SCH (09:40)
[2021-09-15] MEDS: DULoxetine DR 60 mg CAP PO SCH (09:40)
[2021-09-15 11:21] VITALS: BP 114/55
[2021-09-15 11:31] LABS: Rapid COVID-19 Molecular Undetected (Undetected)
== END 2021-09-15 13:05 | DRG 480 ==
LOC: ED 21:46 → SSU 09-01 01:12 → SUATTDRO 09-01 01:12 → SSU 09-01 06:17
PROVIDERS: ADMIT Hospitalist; ATTEND Internal Medicine

== ENCOUNTER 2021-10-04 21:00 | Inpatient (IN) ==
[2021-10-04] MEDS ORDERED: Lactated Ringers 1000 ml BAG 1,000 ML IV ONE ×3 (21:14→22:51)
[2021-10-04] MEDS ORDERED: Piperacillin/Tazobac ADVAN 3.375 GM in NS 0.9% 100 ml BAG 100 ML IV ONE (21:35)
[2021-10-04] MEDS ORDERED: Vancomycin 1,000 MG in NS 0.9% 250 ml 250 ML IVPB ONE (21:35)
[2021-10-04 21:48] LABS: Hematocrit 29 % (42-52); Hemoglobin 9.3 g/dL (14.0-18.0); Mean Corpuscular HGB Conc 32 g/dL (31-36); Mean Corpuscular Hemoglobin 31 pg (27-31); Mean Corpuscular Volume 97 fL (80-94); Platelet Count 349 10^3/uL (150-450); Red Blood Count 3.01 10^6 /uL (4.18-5.48); Red Cell Distribution Width 18 % (10-15); White Blood Count 21.3 10^3/uL (3.5-10.8)
[2021-10-04] MEDS ORDERED: Lorazepam PYXIS KEY PRN (22:01)
[2021-10-04] MEDS ORDERED: LORazepam 2 mg VIAL 1 ml IV PUSH ONE (22:02)
[2021-10-04 22:05] LABS: Albumin 3.1 g/dL (3.2-5.2); Albumin/Globulin Ratio 0.9 (1-3); Calcium 8.6 mg/dL (8.6-10.3); Globulin 3.3 g/dL (2-4); Magnesium 1.5 mg/dL (1.9-2.7); Potassium 4.3 mmol/L (3.5-5.0); Total Bilirubin 0.7 mg/dL (0.2-1.0); Total Protein 6.4 g/dL (6.4-8.9); eGFR CKD-EPI 51.2 (>60)
[2021-10-04] MEDS ORDERED: Magnesium Sulfate 2 gm BAG 2 GM/50 ML BAG IVPB ONE (22:07)
[2021-10-04 22:11] LABS: Urine Appearance Cloudy; Urine Bilirubin Negative (Negative); Urine Blood 2+ (Negative); Urine Color Amber; Urine Glucose Negative (Negative); Urine Ketones Negative (Negative); Urine Nitrite Negative (Negative); Urine Protein 1+(30 mg/dL) (Negative); Urine Specific Gravity 1.016 (1.002-1.030); Urine Urobilinogen Negative (Negative)
[2021-10-04 22:13] LABS: Urine Bacteria Absent (Absent); Urine Red Blood Cell 3+(>10/hpf) (Absent); Urine White Blood Cell 2+(11-20/hpf) (Absent)
[2021-10-04] MEDS ORDERED: Acetaminophen IV 1 GM/100ML 100 ML IV ONE (22:17)
[2021-10-04 22:30] LABS: Polychromasia 1+
[2021-10-04 22:31] LABS: Anisocytosis 1+
[2021-10-04 22:32] LABS: ABS Eosinophils 0.1 10^3/ul (0-0.6); ABS Lymphocytes 0.1 10^3/ul (1.0-4.8); ABS Monocytes 0.4 10^3/ul (0-0.8); ABS Neutrophils 20.7 10^3/ul (1.5-7.7); Eosinophil % 0.5 %; Lymphocyte % 0.4 %
[2021-10-05] LABS: Folate 14.06 ng/mL (5.90-24.80)
[2021-10-05] MEDS ORDERED: Iodixanol (CONTRAST) 320 MG/ML 100 ML SDV IV ONE (00:19)
[2021-10-05 00:21] LABS: C Reactive Protein 190.95 mg/L (<8.01)
[2021-10-05] MEDS ORDERED: Polyethylene Glycol 3350 17 GM PACKET PO PRN (00:35)
[2021-10-05] MEDS ORDERED: Senna TAB 8.6 mg TAB PO PRN (00:35)
[2021-10-05] MEDS ORDERED: NS 0.9% 1000 ml BAG 1,000 ML IV SCH (00:45)
[2021-10-05] MEDS ORDERED: Vancomycin per Pharmacy 1 EA NOTE FOLLOW UP SCH (01:00)
[2021-10-05] MEDS ORDERED: Zosyn per Pharmacy NOTE FOLLOW UP SCH (01:00)
[2021-10-05] MEDS: ZOSYN 3.375 GM Q8H per EXTENDED INFUSION IV SCH ×3 (02:08→17:40)
[2021-10-05] MEDS: Norepinephrine 16MCG/ML IVPRE 4,000 MCG/250 ML BAG IV SCH ×3 (02:50→07:38)
[2021-10-05 05:05] LABS: Hematocrit 25 % (42-52); Mean Corpuscular HGB Conc 32 g/dL (31-36); Mean Corpuscular Hemoglobin 31 pg (27-31); Mean Corpuscular Volume 98 fL (80-94); Mean Platelet Volume 6.7 fL (7.4-10.4); Platelet Count 276 10^3/uL (150-450); Red Blood Count 2.55 10^6 /uL (4.18-5.48); Red Cell Distribution Width 18 % (10-15); White Blood Count 21.2 10^3/uL (3.5-10.8)
[2021-10-05 05:12] LABS: Activated Partial Thrombo Time 34.6 seconds (26.0-38.0); INR 1.53 (0.86-1.15)
[2021-10-05 05:13] LABS: Calcium 7.6 mg/dL (8.6-10.3); Magnesium 1.9 mg/dL (1.9-2.7)
[2021-10-05 05:19] LABS: eGFR CKD-EPI 61.9 (>60)
[2021-10-05 05:37] LABS: Anisocytosis 1+; Hypochromasia 1+; Polychromasia 1+
[2021-10-05 05:39] LABS: ABS Eosinophils 0.3 10^3/ul (0-0.6); ABS Lymphocytes 0.1 10^3/ul (1.0-4.8); ABS Monocytes 0.4 10^3/ul (0-0.8); ABS Neutrophils 20.5 10^3/ul (1.5-7.7); Eosinophil % 1.3 %; Lymphocyte % 0.3 %
[2021-10-05] MEDS: Heparin 5000 UNITS/ML 1 mL VIAL SUBCUT SCH ×2 (06:02→15:34)
[2021-10-05] MEDS: Lactated Ringers 1000 ml BAG 1,000 ML IV SCH ×2 (08:01→17:39)
[2021-10-05] MEDS ORDERED: [UNRECOGNIZED DRUG - OTHER] PO SCH (09:00)
[2021-10-05] MEDS ORDERED: Multivitamins/Minerals TAB PO SCH (09:00)
[2021-10-05] MEDS ORDERED: Vancomycin 1000 MG in NS 0.9% 250 ML IVPB SCH (16:00)
[2021-10-05] MEDS: DULoxetine DR 60 mg CAP PO SCH (17:36)
[2021-10-05] MEDS: Aspirin EC 81 mg TAB.EC (enteric coated) PO SCH (17:54)
[2021-10-06] MEDS: Heparin 5000 UNITS/ML 1 mL VIAL SUBCUT SCH ×4 (00:16→21:16)
[2021-10-06] MEDS: Lactated Ringers 1000 ml BAG 1,000 ML IV SCH (02:50)
[2021-10-06] MEDS: ZOSYN 3.375 GM Q8H per EXTENDED INFUSION IV SCH ×3 (02:50→18:55)
[2021-10-06 04:58] LABS: Hematocrit 22 % (42-52); Hemoglobin 7.3 g/dL (14.0-18.0); Mean Corpuscular HGB Conc 33 g/dL (31-36); Mean Corpuscular Hemoglobin 32 pg (27-31); Mean Corpuscular Volume 97 fL (80-94); Mean Platelet Volume 6.7 fL (7.4-10.4); Platelet Count 214 10^3/uL (150-450); Red Blood Count 2.31 10^6 /uL (4.18-5.48); Red Cell Distribution Width 17 % (10-15); White Blood Count 18.6 10^3/uL (3.5-10.8)
[2021-10-06 05:14] LABS: Calcium 7.6 mg/dL (8.6-10.3); Phosphorus 2.2 mg/dL (2.5-5.0); Potassium 3.4 mmol/L (3.5-5.0); eGFR CKD-EPI 85.6 (>60)
[2021-10-06 05:35] LABS: Polychromasia 1+
[2021-10-06 05:36] LABS: Acanthocytes 1+; Anisocytosis 1+; Basophilic Stippling 1+
[2021-10-06 05:37] LABS: ABS Basophils 0.1 10^3/ul (0-0.2); ABS Eosinophils 0.7 10^3/ul (0-0.6); ABS Lymphocytes 0.5 10^3/ul (1.0-4.8); ABS Monocytes 0.6 10^3/ul (0-0.8); ABS Neutrophils 16.8 10^3/ul (1.5-7.7); Lymphocyte % 2.5 %
[2021-10-06] MEDS: Aspirin EC 81 mg TAB.EC (enteric coated) PO SCH (08:32)
[2021-10-06] MEDS: DULoxetine DR 60 mg CAP PO SCH (08:33)
[2021-10-06] MEDS ORDERED: KCL 20 MEQ/100 ML IVPREMIX 20 MEQ/100 ML BAG IV ONE (10:53)
[2021-10-06] MEDS ORDERED: Potassium Phosphate IV 15 MMOLE in NS 0.9% 250 ml 250 ML IVPB ONE (10:53)
[2021-10-07] MEDS: ZOSYN 3.375 GM Q8H per EXTENDED INFUSION IV SCH ×3 (03:08→18:53)
[2021-10-07 04:20] LABS: Hematocrit 22 % (42-52); Hemoglobin 6.9 g/dL (14.0-18.0); Mean Corpuscular HGB Conc 32 g/dL (31-36); Mean Corpuscular Hemoglobin 31 pg (27-31); Mean Corpuscular Volume 96 fL (80-94); Platelet Count 188 10^3/uL (150-450); Red Blood Count 2.23 10^6 /uL (4.18-5.48); Red Cell Distribution Width 17 % (10-15); White Blood Count 11.3 10^3/uL (3.5-10.8)
[2021-10-07 04:37] LABS: Calcium 7.1 mg/dL (8.6-10.3); Magnesium 1.7 mg/dL (1.9-2.7); Phosphorus 2.1 mg/dL (2.5-5.0); Potassium 3.1 mmol/L (3.5-5.0); eGFR CKD-EPI 92.6 (>60)
[2021-10-07] MEDS: Heparin 5000 UNITS/ML 1 mL VIAL SUBCUT SCH ×3 (07:06→22:02)
[2021-10-07] MEDS: Aspirin EC 81 mg TAB.EC (enteric coated) PO SCH (08:04)
[2021-10-07] MEDS: KCL 20 MEQ/100 ML IVPREMIX 20 MEQ/100 ML BAG IV SCH ×3 (08:04→13:09)
[2021-10-07] MEDS: DULoxetine DR 60 mg CAP PO SCH (08:04)
[2021-10-07] MEDS ORDERED: Potassium Phosphate IV 15 MMOLE in NS 0.9% 250 ml 250 ML IVPB ONE (08:15)
[2021-10-07] MEDS ORDERED: Vancomycin Trough Check NOTE FOLLOW UP ONE (15:30)
[2021-10-08] MEDS: ZOSYN 3.375 GM Q8H per EXTENDED INFUSION IV SCH ×3 (02:25→18:59)
[2021-10-08 05:11] LABS: Hematocrit 22 % (42-52); Hemoglobin 7.2 g/dL (14.0-18.0); Mean Corpuscular HGB Conc 32 g/dL (31-36); Mean Corpuscular Hemoglobin 31 pg (27-31); Mean Corpuscular Volume 96 fL (80-94); Mean Platelet Volume 7.2 fL (7.4-10.4); Platelet Count 182 10^3/uL (150-450); Red Blood Count 2.33 10^6 /uL (4.18-5.48); Red Cell Distribution Width 18 % (10-15)
[2021-10-08 05:23] LABS: INR 1.14 (0.86-1.15)
[2021-10-08 05:37] LABS: Calcium 7.7 mg/dL (8.6-10.3); Magnesium 1.7 mg/dL (1.9-2.7); Phosphorus 2.4 mg/dL (2.5-5.0); Potassium 3.8 mmol/L (3.5-5.0); eGFR CKD-EPI 91.8 (>60)
[2021-10-08] MEDS: Heparin 5000 UNITS/ML 1 mL VIAL SUBCUT SCH ×3 (06:27→22:20)
[2021-10-08] MEDS: DULoxetine DR 60 mg CAP PO SCH (11:43)
[2021-10-08] MEDS: Aspirin EC 81 mg TAB.EC (enteric coated) PO SCH (11:43)
[2021-10-08] MEDS ORDERED: Sodium Phosphate IV 15 MMOLE in NS 0.9% 250 ml 250 ML IV ONE (17:00)
[2021-10-08] MEDS ORDERED: Magnesium Sulfate 2 gm BAG 2 GM/50 ML BAG IVPB ONE (17:01)
[2021-10-09] MEDS: ZOSYN 3.375 GM Q8H per EXTENDED INFUSION IV SCH ×3 (02:49→17:55)
[2021-10-09] MEDS: Heparin 5000 UNITS/ML 1 mL VIAL SUBCUT SCH ×3 (05:38→23:04)
[2021-10-09 05:57] LABS: ABS Eosinophils 0.5 10^3/ul (0-0.6); ABS Lymphocytes 1.4 10^3/ul (1.0-4.8); ABS Monocytes 0.5 10^3/ul (0-0.8); ABS Neutrophils 3.4 10^3/ul (1.5-7.7); Eosinophil % 8.6 %; Hematocrit 27 % (42-52); Hemoglobin 8.4 g/dL (14.0-18.0); Lymphocyte % 23.3 %; Mean Corpuscular HGB Conc 31 g/dL (31-36); Mean Corpuscular Hemoglobin 31 pg (27-31); Mean Corpuscular Volume 98 fL (80-94); Mean Platelet Volume 7.4 fL (7.4-10.4); Platelet Count 185 10^3/uL (150-450); Red Blood Count 2.74 10^6 /uL (4.18-5.48); Red Cell Distribution Width 18 % (10-15); White Blood Count 5.8 10^3/uL (3.5-10.8)
[2021-10-09 06:11] LABS: Calcium 7.9 mg/dL (8.6-10.3); Magnesium 1.9 mg/dL (1.9-2.7); Phosphorus 3.8 mg/dL (2.5-5.0); Potassium 3.6 mmol/L (3.5-5.0); eGFR CKD-EPI 92.6 (>60)
[2021-10-09] MEDS ORDERED: Potassium Chlor 20 meq TAB.ER PO ONE (07:28)
[2021-10-09] MEDS ORDERED: Magnesium Sulfate 2 gm BAG 2 GM/50 ML BAG IVPB ONE (07:28)
[2021-10-09] MEDS ORDERED: Potassium Chloride LIQUID 20 MEQ/15 ML LIQUID PO ONE (08:00)
[2021-10-09] MEDS: Aspirin EC 81 mg TAB.EC (enteric coated) PO SCH (09:06)
[2021-10-09] MEDS: DULoxetine DR 60 mg CAP PO SCH (09:06)
[2021-10-10] MEDS: ZOSYN 3.375 GM Q8H per EXTENDED INFUSION IV SCH ×3 (02:28→18:13)
[2021-10-10 05:58] LABS: Hematocrit 28 % (42-52); Hemoglobin 8.8 g/dL (14.0-18.0); Mean Corpuscular HGB Conc 32 g/dL (31-36); Mean Corpuscular Hemoglobin 31 pg (27-31); Mean Corpuscular Volume 96 fL (80-94); Mean Platelet Volume 7.7 fL (7.4-10.4); Platelet Count 258 10^3/uL (150-450); Red Blood Count 2.86 10^6 /uL (4.18-5.48); Red Cell Distribution Width 18 % (10-15); White Blood Count 8.4 10^3/uL (3.5-10.8)
[2021-10-10] MEDS: Heparin 5000 UNITS/ML 1 mL VIAL SUBCUT SCH ×3 (06:15→21:40)
[2021-10-10 06:17] LABS: Calcium 8.4 mg/dL (8.6-10.3); Potassium 3.9 mmol/L (3.5-5.0); eGFR CKD-EPI 90.3 (>60)
[2021-10-10] MEDS: Aspirin EC 81 mg TAB.EC (enteric coated) PO SCH (08:57)
[2021-10-10] MEDS: DULoxetine DR 60 mg CAP PO SCH (08:57)
[2021-10-10 11:49] LABS: Rapid COVID-19 Molecular Undetected (Undetected)
[2021-10-11] MEDS: ZOSYN 3.375 GM Q8H per EXTENDED INFUSION IV SCH (02:32)
[2021-10-11] MEDS: Heparin 5000 UNITS/ML 1 mL VIAL SUBCUT SCH (05:22)
[2021-10-11 07:32] VITALS: BP 132/82
== END 2021-10-11 08:52 | DRG 871 ==
LOC: ED 21:00 → SUATTDRO 10-05 00:18 → ICU 10-05 00:18 → SSU 10-08 00:22
PROVIDERS: ADMIT Internal Medicine; ATTEND Internal Medicine

== ENCOUNTER 2021-12-02 10:23 | Inpatient (IN) ==
[2021-12-02] MEDS ORDERED: NS 0.9% 1000 ml BAG 1,000 ML IV.FLUID IV ONE (10:51)
[2021-12-02] MEDS ORDERED: Piperacillin/Tazobac ADVAN 3.375 GM in NS 0.9% 100 ml BAG 100 ML IV ONE (11:09)
[2021-12-02 11:21] LABS: ABS Lymphocytes 0.1 10^3/ul (1.0-4.8); ABS Monocytes 0.1 10^3/ul (0-0.8); Eosinophil % 0.1 %; Hematocrit 23 % (42-52); Hemoglobin 7.6 g/dL (14.0-18.0); Lymphocyte % 2.3 %; Mean Corpuscular HGB Conc 33 g/dL (31-36); Mean Corpuscular Hemoglobin 29 pg (27-31); Mean Corpuscular Volume 88 fL (80-94); Mean Platelet Volume 7.1 fL (7.4-10.4); Nucleated Red Blood Cells % 0.2; Platelet Count 338 10^3/uL (150-450); Red Blood Count 2.64 10^6 /uL (4.18-5.48); Red Cell Distribution Width 18 % (10-15); White Blood Count 5.2 10^3/uL (3.5-10.8)
[2021-12-02 11:28] LABS: Urine Appearance Turbid; Urine Bilirubin Negative (Negative); Urine Blood 2+ (Negative); Urine Color Amber; Urine Glucose Negative (Negative); Urine Ketones Negative (Negative); Urine Nitrite Positive (Negative); Urine Protein 2+(100 mg/dL) (Negative); Urine Specific Gravity 1.011 (1.002-1.030); Urine Urobilinogen Negative (Negative)
[2021-12-02 11:43] LABS: ALT 16 U/L (7-52); AST 20 U/L (13-39); Albumin/Globulin Ratio 0.9 (1-3); Alkaline Phosphatase 142 U/L (35-149); Blood Urea Nitrogen 35 mg/dL (6-24); C Reactive Protein 152.25 mg/L (<8.01); CO2 Carbon Dioxide 25 mmol/L (22-32); Calcium 8.8 mg/dL (8.6-10.3); Chloride 99 mmol/L (101-111); Globulin 3.4 g/dL (2-4); Glucose 100 mg/dL (70-100); Sodium 133 mmol/L (135-145); Total Protein 6.4 g/dL (6.4-8.9); eGFR CKD-EPI 29.2 (>60)
[2021-12-02 11:44] LABS: Anion Gap 9 mmol/L (2-11); Potassium 5.2 mmol/L (3.5-5.0); Troponin I 0.12 ng/mL (<0.03)
[2021-12-02 12:10] LABS: Creatine Kinase 50 U/L (10-223)
[2021-12-02 13:02] LABS: Urine Bacteria 1+ (Absent); Urine Red Blood Cell 3+(>10/hpf) (Absent); Urine White Blood Cell 3+(>20/hpf) (Absent)
[2021-12-02] MEDS ORDERED: Magnesium Hydroxide LIQ 30 ML UDC PO PRN (13:13)
[2021-12-02] MEDS ORDERED: NS 0.9% 1000 ml BAG 1,000 ML IV SCH ×2 (13:15→19:53)
[2021-12-02 13:16] LABS: Activated Partial Thrombo Time 26.3 seconds (26.0-38.0); INR 1.17 (0.86-1.15)
[2021-12-02] MEDS ORDERED: Sodium Phosphate ADULT ENEMA 133 ML BTL PR PRN (13:23)
[2021-12-02] MEDS: Piperacillin/Tazobac ADVAN 3.375 GM in NS 0.9% 100 ml BAG 100 ML IV SCH (15:02)
[2021-12-02 16:42] LABS: Total Iron Binding Capacity 277 mcg/dL (250-450); Transferrin 198 mg/dL (203-362)
[2021-12-02 16:53] LABS: % Iron Saturation 7 % (15-55); Iron < 20 ug/dL (50-212); Unsaturated Iron Binding 257 ug/dL
[2021-12-02 17:49] LABS: Troponin I 0.04 ng/mL (<0.03)
[2021-12-02 18:33] LABS: Ferritin 90.6 ng/mL (24-336)
[2021-12-02 18:48] LABS: Hematocrit 19 % (42-52)
[2021-12-03 01:50] LABS: Hematocrit 21 % (42-52); Hemoglobin 6.8 g/dL (14.0-18.0); Mean Corpuscular HGB Conc 33 g/dL (31-36); Mean Corpuscular Hemoglobin 29 pg (27-31); Mean Corpuscular Volume 88 fL (80-94); Mean Platelet Volume 7.4 fL (7.4-10.4); Platelet Count 264 10^3/uL (150-450); Red Blood Count 2.38 10^6 /uL (4.18-5.48); Red Cell Distribution Width 17 % (10-15); White Blood Count 20.3 10^3/uL (3.5-10.8)
[2021-12-03] MEDS: Piperacillin/Tazobac ADVAN 3.375 GM in NS 0.9% 100 ml BAG 100 ML IV SCH (03:00)
[2021-12-03] MEDS: NS 0.9% 1000 ml BAG 1,000 ML IV SCH ×2 (07:27→17:57)
[2021-12-03 08:33] LABS: Hematocrit 22 % (42-52); Hemoglobin 7.2 g/dL (14.0-18.0); Mean Corpuscular HGB Conc 33 g/dL (31-36); Mean Corpuscular Hemoglobin 29 pg (27-31); Mean Corpuscular Volume 87 fL (80-94); Mean Platelet Volume 7.3 fL (7.4-10.4); Platelet Count 288 10^3/uL (150-450); Red Blood Count 2.52 10^6 /uL (4.18-5.48); Red Cell Distribution Width 18 % (10-15); White Blood Count 18.2 10^3/uL (3.5-10.8)
[2021-12-03 08:49] LABS: C Reactive Protein 269.73 mg/L (<8.01); Calcium 7.8 mg/dL (8.6-10.3); Potassium 3.8 mmol/L (3.5-5.0); eGFR CKD-EPI 76.5 (>60)
[2021-12-03] MEDS: Aspirin EC 81 mg TAB.EC (enteric coated) PO SCH (08:59)
[2021-12-03] MEDS: DULoxetine DR 60 mg CAP PO SCH (08:59)
[2021-12-03] MEDS: cefTRIAXone 1 gm/50 mL NS BAG 1 GM/50 ML BAG IVPB SCH (09:19)
[2021-12-03 09:59] LABS: ABS Basophils 0.1 10^3/ul (0-0.2); ABS Lymphocytes 0.5 10^3/ul (1.0-4.8); ABS Monocytes 0.6 10^3/ul (0-0.8); Eosinophil % 0.1 %; Lymphocyte % 2.6 %
[2021-12-04] MEDS: NS 0.9% 1000 ml BAG 1,000 ML IV SCH ×2 (04:03→15:35)
[2021-12-04 06:43] LABS: ABS Eosinophils 0.2 10^3/ul (0-0.6); ABS Lymphocytes 0.7 10^3/ul (1.0-4.8); ABS Monocytes 0.6 10^3/ul (0-0.8); ABS Neutrophils 11.7 10^3/ul (1.5-7.7); Eosinophil % 1.5 %; Hematocrit 20 % (42-52); Hemoglobin 6.6 g/dL (14.0-18.0); Lymphocyte % 5.3 %; Mean Corpuscular HGB Conc 33 g/dL (31-36); Mean Corpuscular Hemoglobin 29 pg (27-31); Mean Corpuscular Volume 88 fL (80-94); Mean Platelet Volume 7.6 fL (7.4-10.4); Platelet Count 242 10^3/uL (150-450); Red Blood Count 2.27 10^6 /uL (4.18-5.48); Red Cell Distribution Width 18 % (10-15); White Blood Count 13.2 10^3/uL (3.5-10.8)
[2021-12-04 07:04] LABS: C Reactive Protein 147.43 mg/L (<8.01); Calcium 7.7 mg/dL (8.6-10.3); Potassium 3.5 mmol/L (3.5-5.0); eGFR CKD-EPI 91.8 (>60)
[2021-12-04] MEDS: Aspirin EC 81 mg TAB.EC (enteric coated) PO SCH (08:24)
[2021-12-04] MEDS: cefTRIAXone 1 gm/50 mL NS BAG 1 GM/50 ML BAG IVPB SCH (08:25)
[2021-12-04] MEDS: DULoxetine DR 60 mg CAP PO SCH (08:25)
[2021-12-05] MEDS: NS 0.9% 1000 ml BAG 1,000 ML IV SCH (02:38)
[2021-12-05 05:57] LABS: ABS Eosinophils 0.1 10^3/ul (0-0.6); ABS Lymphocytes 0.8 10^3/ul (1.0-4.8); ABS Monocytes 0.4 10^3/ul (0-0.8); ABS Neutrophils 8.5 10^3/ul (1.5-7.7); Hematocrit 22 % (42-52); Hemoglobin 7.1 g/dL (14.0-18.0); Lymphocyte % 7.9 %; Mean Corpuscular HGB Conc 33 g/dL (31-36); Mean Corpuscular Hemoglobin 29 pg (27-31); Mean Corpuscular Volume 88 fL (80-94); Mean Platelet Volume 7.5 fL (7.4-10.4); Platelet Count 242 10^3/uL (150-450); Red Blood Count 2.47 10^6 /uL (4.18-5.48); Red Cell Distribution Width 18 % (10-15); White Blood Count 9.8 10^3/uL (3.5-10.8)
[2021-12-05 06:17] LABS: C Reactive Protein 74.28 mg/L (<8.01); Calcium 7.8 mg/dL (8.6-10.3); eGFR CKD-EPI 95.3 (>60)
[2021-12-05] MEDS: DULoxetine DR 60 mg CAP PO SCH (10:58)
[2021-12-05] MEDS: cefTRIAXone 1 gm/50 mL NS BAG 1 GM/50 ML BAG IVPB SCH (10:58)
[2021-12-06 05:41] LABS: Hematocrit 21 % (42-52); Mean Corpuscular HGB Conc 33 g/dL (31-36); Mean Corpuscular Hemoglobin 28 pg (27-31); Mean Corpuscular Volume 87 fL (80-94); Mean Platelet Volume 7.5 fL (7.4-10.4); Platelet Count 257 10^3/uL (150-450); Red Blood Count 2.47 10^6 /uL (4.18-5.48); Red Cell Distribution Width 19 % (10-15); White Blood Count 6.9 10^3/uL (3.5-10.8)
[2021-12-06] MEDS: DULoxetine DR 60 mg CAP PO SCH (08:35)
[2021-12-06] MEDS: cefTRIAXone 1 gm/50 mL NS BAG 1 GM/50 ML BAG IVPB SCH (10:12)
[2021-12-06 10:53] VITALS: BP 137/62
== END 2021-12-06 14:15 | DRG 871 ==
LOC: ED 10:23 → EDHOLD 13:13 → MED 17:19
PROVIDERS: ADMIT Hospitalist; ATTEND Internal Medicine

== ENCOUNTER 2022-02-02 15:49 | Inpatient (IN) ==
[2022-02-02] MEDS ORDERED: Morphine 4 MG/ML VIAL (1 ml) IV ONE (16:22)
[2022-02-02 17:55] LABS: ABS Basophils 0.1 10^3/ul (0-0.2); ABS Eosinophils 0.1 10^3/ul (0-0.6); ABS Lymphocytes 0.8 10^3/ul (1.0-4.8); ABS Neutrophils 5.6 10^3/ul (1.5-7.7); Eosinophil % 0.7 %; Hematocrit 34 % (42-52); Hemoglobin 11.2 g/dL (14.0-18.0); Lymphocyte % 10.7 %; Mean Corpuscular HGB Conc 33 g/dL (31-36); Mean Corpuscular Hemoglobin 27 pg (27-31); Mean Corpuscular Volume 81 fL (80-94); Mean Platelet Volume 7.3 fL (7.4-10.4); Platelet Count 287 10^3/uL (150-450); Red Cell Distribution Width 22 % (10-15); White Blood Count 7.5 10^3/uL (3.5-10.8)
[2022-02-02 19:10] LABS: ALT 18 U/L (7-52); Albumin 3.3 g/dL (3.2-5.2); Albumin/Globulin Ratio 0.9 (1-3); Alkaline Phosphatase 87 U/L (35-149); Blood Urea Nitrogen 17 mg/dL (6-24); CO2 Carbon Dioxide 28 mmol/L (22-32); Calcium 8.8 mg/dL (8.6-10.3); Chloride 99 mmol/L (101-111); Globulin 3.8 g/dL (2-4); Glucose 98 mg/dL (70-100); Sodium 134 mmol/L (135-145); Total Protein 7.1 g/dL (6.4-8.9); eGFR CKD-EPI 93.5 (>60)
[2022-02-02 19:35] LABS: Anion Gap 7 mmol/L (2-11)
[2022-02-02] MEDS ORDERED: Magnesium Hydroxide LIQ 30 ML UDC PO PRN (20:17)
[2022-02-02] MEDS ORDERED: Ondansetron 4 mg VIAL 2 MG/ML 2 ml VIAL IV PRN (20:17)
[2022-02-02] MEDS ORDERED: Al Hydrox/Mg Hydrox/Simet LIQ 30 ML UDC PO PRN (20:17)
[2022-02-02] MEDS ORDERED: Heparin 5000 UNITS/ML 1 mL VIAL SUBCUT ONE (21:10)
[2022-02-02] MEDS ORDERED: Morphine 2 MG/ML SYRINGE IV PRN (21:19)
[2022-02-02 21:44] LABS: Magnesium 1.8 mg/dL (1.9-2.7)
[2022-02-02] MEDS ORDERED: Lactated Ringers 1000 ml BAG 1,000 ML IV SCH (23:59)
[2022-02-03 01:35] LABS: Potassium Redraw 4.1 mmol/L (3.5-5.0)
[2022-02-03 02:45] LABS: Urine Appearance Clear; Urine Bilirubin Negative (Negative); Urine Blood Negative (Negative); Urine Color Yellow; Urine Glucose Negative (Negative); Urine Ketones Negative (Negative); Urine Nitrite Negative (Negative); Urine Protein Negative (Negative); Urine Specific Gravity 1.021 (1.002-1.030); Urine Urobilinogen Positive (Negative)
[2022-02-03] MEDS ORDERED: Magnesium Sulfate IV 1GM/100ML 1 GM/100 ML BAG IV ONE (04:18)
[2022-02-03] MEDS ORDERED: NS 0.9% 1000 ml BAG 1,000 ML IV SCH (13:15)
[2022-02-03] MEDS ORDERED: fentaNYL 100 mcg/2 ml 50 MCG/ML VIAL IV PRN (13:32)
[2022-02-03] MEDS ORDERED: Naloxone 0.4 mg VIAL 0.4 mg/ml 1 ml VIAL IV PRN (13:32)
[2022-02-03] MEDS ORDERED: Ondansetron 4 mg VIAL 2 MG/ML 2 ml VIAL IV PRN (13:32)
[2022-02-03] MEDS ORDERED: HYDROmorphone 1 MG/1 ML SYRINGE IV PRN (13:32)
[2022-02-03] MEDS ORDERED: DiMENhydriNATE IV 50 mg/ml 1 ml VIAL IV PUSH PRN (13:32)
[2022-02-03] MEDS ORDERED: Acetaminophen IV 1 GM/100ML 100 ML IV PRN (13:32)
[2022-02-03] MEDS ORDERED: Propofol 10 MG/ML 20 ML BTL ONE (13:35)
[2022-02-03] MEDS ORDERED: fentaNYL 250 mcg/5 ml 50 MCG/ML 5 ml VIAL (250 MCG) ONE (13:35)
[2022-02-03] MEDS ORDERED: Lidocaine 2% PF 5 ML VIAL ONE (13:35)
[2022-02-03] MEDS ORDERED: Phenylephrine IV 10 MG/ML 1 ml VIAL ONE (13:35)
[2022-02-03] MEDS ORDERED: Midazolam 2 mg/2 ml VIAL 1 mg/ml 2 ml VIAL (2 mg) ONE (13:35)
[2022-02-03] MEDS ORDERED: Rocuronium 50 mg VIAL 10 mg/ml 5 ml VIAL (50 mg) ONE ×2 (13:35→16:44)
[2022-02-03] MEDS ORDERED: Acetaminophen IV 1 GM/100ML 100 ML IV ONE (14:18)
[2022-02-03] MEDS ORDERED: Famotidine IV 10 MG/ML 2 ml VIAL (20 mg) ONE (14:18)
[2022-02-03] MEDS ORDERED: ceFAZolin 2 GM PREMIX 2 GM/50 ML BAG ONE (14:22)
[2022-02-03] MEDS ORDERED: BUPIVACAINE **LIPOSOME/PF 13.3 MG/ML (266MG/ 20ML) VIAL (RESTRICTED) INFIL ONE (15:00)
[2022-02-03] MEDS ORDERED: Dexamethasone IV 4 MG/ML VIAL 1 ml VIAL ONE (15:54)
[2022-02-03] MEDS ORDERED: Bupivacaine 0.25% SDV PF 10 ML VIAL INJ ONE (16:12)
[2022-02-03] MEDS ORDERED: Ondansetron 4 mg VIAL 2 MG/ML 2 ml VIAL ONE (17:04)
[2022-02-04] MEDS: ceFAZolin VIAL 1 GM in NS 0.9% 50 ML 50 ML IVPB SCH ×3 (00:26→15:21)
[2022-02-04] MEDS ORDERED: Haloperidol 5 mg/ml SDV IV/IM 5 MG/ML AMP IV SLOW PU PRN (02:33)
[2022-02-04] MEDS ORDERED: Haloperidol 5 mg/ml SDV IV/IM 5 MG/ML AMP IM PRN (02:43)
[2022-02-04] MEDS ORDERED: diPHENhydraMINE IV 50 MG/ML 1 ml VIAL (BENADRYL) IV ONE (02:54)
[2022-02-04 05:02] LABS: Hematocrit 28 % (42-52); Hemoglobin 9.2 g/dL (14.0-18.0)
[2022-02-04] MEDS: Enoxaparin 40 MG/0.4 ML SYR SUBCUT SCH (08:46)
[2022-02-04 09:42] LABS: Calcium 7.8 mg/dL (8.6-10.3); Potassium 4.3 mmol/L (3.5-5.0); eGFR CKD-EPI 92.2 (>60)
[2022-02-05 06:14] LABS: ABS Lymphocytes 0.8 10^3/ul (1.0-4.8); ABS Monocytes 0.8 10^3/ul (0-0.8); ABS Neutrophils 4.3 10^3/ul (1.5-7.7); Eosinophil % 0.5 %; Hematocrit 26 % (42-52); Hemoglobin 8.6 g/dL (14.0-18.0); Mean Corpuscular HGB Conc 33 g/dL (31-36); Mean Corpuscular Hemoglobin 26 pg (27-31); Mean Corpuscular Volume 80 fL (80-94); Mean Platelet Volume 7.1 fL (7.4-10.4); Nucleated Red Blood Cells % 0.1; Platelet Count 292 10^3/uL (150-450); Red Cell Distribution Width 21 % (10-15)
[2022-02-05 06:39] LABS: Calcium 7.9 mg/dL (8.6-10.3); Magnesium 1.8 mg/dL (1.9-2.7); Potassium 4.1 mmol/L (3.5-5.0); eGFR CKD-EPI 91.8 (>60)
[2022-02-05] MEDS: Enoxaparin 40 MG/0.4 ML SYR SUBCUT SCH (09:55)
[2022-02-05 15:58] LABS: Rapid COVID-19 Molecular Undetected (Undetected)
[2022-02-06 05:45] LABS: ABS Eosinophils 0.1 10^3/ul (0-0.6); ABS Lymphocytes 1.1 10^3/ul (1.0-4.8); ABS Monocytes 0.8 10^3/ul (0-0.8); ABS Neutrophils 4.5 10^3/ul (1.5-7.7); Eosinophil % 1.8 %; Hematocrit 23 % (42-52); Hemoglobin 7.7 g/dL (14.0-18.0); Lymphocyte % 16.8 %; Mean Corpuscular HGB Conc 33 g/dL (31-36); Mean Corpuscular Hemoglobin 27 pg (27-31); Mean Corpuscular Volume 81 fL (80-94); Mean Platelet Volume 6.8 fL (7.4-10.4); Platelet Count 270 10^3/uL (150-450); Red Cell Distribution Width 21 % (10-15); White Blood Count 6.5 10^3/uL (3.5-10.8)
[2022-02-06 06:22] LABS: Calcium 7.9 mg/dL (8.6-10.3); eGFR CKD-EPI 89.2 (>60)
[2022-02-06 08:32] VITALS: BP 137/72
[2022-02-06] MEDS: Enoxaparin 40 MG/0.4 ML SYR SUBCUT SCH (09:12)
[2022-02-06 09:29] LABS: ABS Eosinophils 0.1 10^3/ul (0-0.6); ABS Lymphocytes 0.8 10^3/ul (1.0-4.8); ABS Monocytes 0.7 10^3/ul (0-0.8); ABS Neutrophils 4.5 10^3/ul (1.5-7.7); Eosinophil % 0.9 %; Hematocrit 24 % (42-52); Hemoglobin 7.9 g/dL (14.0-18.0); Lymphocyte % 13.4 %; Mean Corpuscular HGB Conc 33 g/dL (31-36); Mean Corpuscular Hemoglobin 26 pg (27-31); Mean Corpuscular Volume 80 fL (80-94); Mean Platelet Volume 6.5 fL (7.4-10.4); Platelet Count 278 10^3/uL (150-450); Red Blood Count 3.06 10^6 /uL (4.18-5.48); Red Cell Distribution Width 21 % (10-15); White Blood Count 6.2 10^3/uL (3.5-10.8)
[2022-02-06] MEDS ORDERED: Iron Sucrose 200 MG in NS 0.9% 100 ml BAG 100 ML IVPB ONE (11:00)
== END 2022-02-06 12:00 | DRG 522 ==
LOC: ED 15:49 → SUATTDRO 20:12 → EDHOLD 20:12 → SSU 23:47
PROVIDERS: ADMIT Physician Assistant; ATTEND Internal Medicine

== ENCOUNTER 2022-02-13 23:31 | Observation (INO) ==
[2022-02-14] MEDS ORDERED: NS 0.9% 1000 ml BAG 1,000 ML IV SCH (03:15)
[2022-02-14 04:08] LABS: ABS Basophils 0.1 10^3/ul (0-0.2); ABS Eosinophils 0.1 10^3/ul (0-0.6); ABS Monocytes 0.7 10^3/ul (0-0.8); ABS Neutrophils 5.1 10^3/ul (1.5-7.7); Eosinophil % 0.9 %; Hematocrit 24 % (42-52); Hemoglobin 7.7 g/dL (14.0-18.0); Lymphocyte % 13.9 %; Mean Corpuscular HGB Conc 32 g/dL (31-36); Mean Corpuscular Hemoglobin 26 pg (27-31); Mean Corpuscular Volume 81 fL (80-94); Mean Platelet Volume 6.5 fL (7.4-10.4); Platelet Count 427 10^3/uL (150-450); Red Blood Count 2.99 10^6 /uL (4.18-5.48); Red Cell Distribution Width 21 % (10-15); White Blood Count 6.8 10^3/uL (3.5-10.8)
[2022-02-14 04:14] LABS: INR 1.12 (0.86-1.15)
[2022-02-14 04:15] LABS: Activated Partial Thrombo Time 32.2 seconds (26.0-38.0)
[2022-02-14 04:34] LABS: Albumin 2.7 g/dL (3.2-5.2); Calcium 8.3 mg/dL (8.6-10.3); Globulin 2.7 g/dL (2-4); Potassium 4.2 mmol/L (3.5-5.0); Total Bilirubin 0.3 mg/dL (0.2-1.0); Total Protein 5.4 g/dL (6.4-8.9); eGFR CKD-EPI 92.6 (>60)
[2022-02-14] MEDS ORDERED: Morphine 2 MG/ML SYRINGE IV PRN (05:38)
[2022-02-14] MEDS ORDERED: Magnesium Hydroxide LIQ 30 ML UDC PO PRN (05:39)
[2022-02-14] MEDS ORDERED: Enoxaparin 40 MG/0.4 ML SYR SUBCUT SCH ×2 (06:00→21:00)
[2022-02-14] MEDS: DULoxetine DR 60 mg CAP PO SCH (10:19)
[2022-02-14 11:28] LABS: Urine Appearance Cloudy; Urine Bilirubin Negative (Negative); Urine Blood Negative (Negative); Urine Color Yellow; Urine Glucose Negative (Negative); Urine Ketones Negative (Negative); Urine Nitrite Negative (Negative); Urine Protein Negative (Negative); Urine Urobilinogen Negative (Negative)
[2022-02-14 11:40] LABS: Urine Amorphous Crystals Present (Absent); Urine Bacteria 1+ (Absent); Urine Red Blood Cell 2+(6-10/hpf) (Absent); Urine White Blood Cell 3+(>20/hpf) (Absent)
[2022-02-14] MEDS: Lactated Ringers 1000 ml BAG 1,000 ML IV SCH ×2 (13:31→20:01)
[2022-02-14] MEDS ORDERED: Naloxone 0.4 mg VIAL 0.4 mg/ml 1 ml VIAL IV PRN (14:10)
[2022-02-14] MEDS ORDERED: HYDROmorphone 1 MG/1 ML SYRINGE IV PRN (14:10)
[2022-02-14] MEDS ORDERED: Prochlorperazine 5 mg/ml 2 ml VIAL (10 mg) IV PRN (14:10)
[2022-02-14] MEDS ORDERED: Propofol 10 MG/ML 20 ML BTL ONE (14:15)
[2022-02-14] MEDS ORDERED: fentaNYL 100 mcg/2 ml 50 MCG/ML VIAL ONE (17:10)
[2022-02-14] MEDS ORDERED: Rocuronium 50 mg VIAL 10 mg/ml 5 ml VIAL (50 mg) ONE (17:28)
[2022-02-14] MEDS ORDERED: Ondansetron 4 mg VIAL 2 MG/ML 2 ml VIAL ONE (17:36)
[2022-02-14] MEDS ORDERED: cefTRIAXone 1 gm/50 mL D5W 1 GM/50 ML BAG IV SCH (21:00)
[2022-02-15] MEDS ORDERED: Enoxaparin 40 MG/0.4 ML SYR SUBCUT SCH (06:00)
[2022-02-15 06:14] LABS: ABS Eosinophils 0.1 10^3/ul (0-0.6); ABS Lymphocytes 0.7 10^3/ul (1.0-4.8); ABS Monocytes 0.6 10^3/ul (0-0.8); ABS Neutrophils 5.2 10^3/ul (1.5-7.7); Hematocrit 25 % (42-52); Hemoglobin 7.9 g/dL (14.0-18.0); Lymphocyte % 11.2 %; Mean Corpuscular HGB Conc 32 g/dL (31-36); Mean Corpuscular Hemoglobin 26 pg (27-31); Mean Corpuscular Volume 81 fL (80-94); Mean Platelet Volume 6.6 fL (7.4-10.4); Nucleated Red Blood Cells % 0.1; Platelet Count 461 10^3/uL (150-450); Red Blood Count 3.11 10^6 /uL (4.18-5.48); Red Cell Distribution Width 21 % (10-15); White Blood Count 6.6 10^3/uL (3.5-10.8)
[2022-02-15 06:19] LABS: INR 1.13 (0.86-1.15)
[2022-02-15 06:43] LABS: Calcium 7.9 mg/dL (8.6-10.3); Potassium 4.2 mmol/L (3.5-5.0)
[2022-02-15 06:49] LABS: eGFR CKD-EPI 89.5 (>60)
[2022-02-15] MEDS: DULoxetine DR 60 mg CAP PO SCH (10:14)
[2022-02-15 11:18] VITALS: BP 135/65
== END 2022-02-15 12:20 ==
LOC: ED 23:31 → SUATTDRO 02-14 05:32 → EDHOLD 02-14 05:32 → SDS 02-14 15:02 → SSU 02-14 15:02
PROVIDERS: ADMIT Hospitalist; ATTEND Student in an Organized Health Care Education/Training Program